=== PATIENT | female | born 1970 | race Caucasian/White ===

== ENCOUNTER 2019-05-14 13:22 | Emergency (ER) | payer MEDICARE ==
--- NOTE | 2019-05-14 13:57 | ER Document Report ---
ED Medical Screen (RME) - General Chief Complaint: Breast Lump Stated Complaint: LEFT BREAST PAIN Time Seen by Provider: 05/14/19 13:50 Information source: Patient Notes: Patient presents with swelling to the left nipple for the past 5 days. 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 Patient states that she has been seen at the urgent care for the past 2 days and each day has received a Rocephin injection. Patient denies any improvement of her symptoms. Patient denies any fever or history of diabetes. I have greeted and performed a rapid initial assessment of this patient. A comprehensive ED assessment and evaluation of the patient, analysis of test results and completion of the medical decision making process will be conducted by additional ED providers. - Related Data Allergies/Adverse Reactions: cephalexin [From Keflex] Allergy (Verified 05/14/19 13:48) doxycycline Allergy (Verified 05/14/19 13:48) Sulfa (Sulfonamide Antibiotics) Allergy (Verified 05/14/19 13:50) Physical Exam - Vital signs Vitals: Temp Pulse Resp BP Pulse Ox 98.0 F 85 16 137/94 H 100 05/14/19 13:31 05/14/19 13:31 05/14/19 13:31 05/14/19 13:31 05/14/19 13:31 - General General appearance: Appears well, Alert Notes: Tenderness, swelling, erythema involving the nipple of the left breast Course - Vital Signs Vital signs: Temp Pulse Resp BP Pulse Ox 98.0 F 85 16 137/94 H 100 05/14/19 13:31 05/14/19 13:31 05/14/19 13:31 05/14/19 13:31 05/14/19 13:31
--- NOTE | 2019-05-14 14:43 | RADIOLOGY REPORT (SQ) ---
EXAM DESCRIPTION: U/S CHEST COMPLETED DATE/TIME: 05/14/2019 2:34 pm REASON FOR STUDY: eval for abscess COMPARISON: None TECHNIQUE: Static and Realtime grayscale interrogation of focal area(s) of concern in the left breas t(s) acquired. Selected color doppler/spectral images saved to PACS. LIMITATIONS: None. FINDINGS: Masses:1.8 x 1.5 x 2.1 cm heterogeneous mass retroareolar with increased vascularity. Architecture:No alteration of normal morphology. No skin thickening. No edema. Other: None. IMPRESSION: Mass in the left breast BIRAD: 0 Incomplete: Need additional imaging evaluation and/or prior mammograms for comparison.. RECOMMENDATION: RECOMMENDED FOLLOW-UP: Patient needs a mammogram. COMMENT: The [employer] ([employer]) has developed recommendations for screening MRI of the breasts in certain patient populations, to be used in conjunction with mammography. Breast MRI s urveillance may be appropriate for women with more than 20% lifetime risk of developing breast cancer as determined by genetic testing, significant family history of the disease, or history of mantle r adiation for Hodgkins Disease. [employer]CR Practice Guidelines 2008. TECHNICAL DOCUMENTATION: FINDING NUMBER: (1) ASSESSMENT: (1) JOB ID: [id number] [employer]- All Rights Reserved Reading location - IP/workstation name: [email or web address]
[2019-05-14] MEDS ORDERED: KETOROLAC TROMETHAMINE 60 MG/2 ML SDV IM ONE (15:31)
--- NOTE | 2019-05-14 15:36 | ER Document Report ---
ED Breast Problem - General Chief Complaint: Breast Problem Stated Complaint: LEFT BREAST PAIN Time Seen by Provider: 05/14/19 13:50 Primary Care Provider: GORDY FLANAGAN MD [ACTIVE STAFF] - Follow up in 3-5 days Notes: 49-year-old female presents with left nipple swelling/pain for 5 days. Patient states she has a history of abscesses to the left breast however this seems different. Patient states she initially had some white/yellow discharge from her nipple but has not had any since the second day. Patient states some discharge from her nipple is normal for her. Patient states she went to the urgent care the last 2 days and was given a shot of Rocephin both times. Patient denies any fever. Patient denies any family history of breast cancer. - Related Data Allergies/Adverse Reactions: cephalexin [From Keflex] Allergy (Verified 05/14/19 13:48) doxycycline Allergy (Verified 05/14/19 13:48) Sulfa (Sulfonamide Antibiotics) Allergy (Verified 05/14/19 13:50) Past Medical History - General Information source: Patient - Social History Smoking Status: Current Every Day Smoker Family History: None Patient has suicidal ideation: No Patient has homicidal ideation: No Review of Systems - Review of Systems Notes: Constitutional: Negative for fever. HENT: Negative for sore throat. Eyes: Negative for visual changes. Cardiovascular: Negative for chest pain. Respiratory: Negative for shortness of breath. Gastrointestinal: Negative for abdominal pain, vomiting or diarrhea. Genitourinary: Negative for dysuria. Musculoskeletal: Negative for back pain. Skin: Positive for left nipple swelling/pain. Negative for rash. Neurological: Negative for headaches, weakness or numbness. 10 point ROS negative except as marked above and in HPI. Physical Exam - Vital signs Vitals: Temp Pulse Resp BP Pulse Ox 98.0 F 85 16 137/94 H 100 05/14/19 13:31 05/14/19 13:31 05/14/19 13:31 05/14/19 13:31 05/14/19 13:31 - Notes Notes: GENERAL: Well-appearing, well-nourished and in no acute distress. HEAD: Atraumatic, normocephalic. EYES: Extraocular movements intact, sclera anicteric, conjunctiva are normal. NECK: Normal range of motion, supple without lymphadenopathy or JVD. BREAST: Left nipple is noted to be moderately swollen and erythematous. Area is very tender to touch. No obvious abscess felt. No discharge/drainage. EXTREMITIES: Normal range of motion, no pitting or edema. No clubbing or cyanosis. NEUROLOGICAL: Cranial nerves II through XII grossly intact. Normal speech, normal gait. PSYCH: Normal mood, normal affect. SKIN: Warm, Dry, normal turgor, no rashes or lesions noted. Course - Re-evaluation Re-evalutation: 05/14/19 49-year-old female presents for left nipple swelling/pain for 5 days. History of abscesses however states this feels different. Patient had ultrasound ordered in triage which showed a mass retro-alveolar with increased vascularity. Patient is afebrile. A copy of this report was also given to patient. Discussed the results as well including possible differentials including cysts, benign mass, possible cancer. Educated patient on importance of getting mammogram outpatient and follow-up with a primary care doctor. An order for an outpatient mammogram was given and close follow-up with a primary care doctor was also given. Again encouraged patient to make appointment for outpatient mammogram and for primary care doctor. Strict return precautions given. All questions/concerns addressed prior to discharge. Patient voices understanding and agrees with plan of care. - Vital Signs Vital signs: Temp Pulse Resp BP Pulse Ox 98.0 F 85 16 137/94 H 100 05/14/19 13:31 05/14/19 13:31 05/14/19 13:31 05/14/19 13:31 05/14/19 13:31 Discharge - Discharge Clinical Impression: Left breast mass Condition: Stable Disposition: HOME, SELF-CARE Instructions: Growth or Mass, Pending Workup ([facility]) Additional Instructions: The ultrasound of your left breast showed a mass behind your nipple. You were given a copy of your report. It is recommended that you get a mammogram done outpatient. An order is included in your discharge instructions. Please call to make an appointment to have this done. Please follow-up with primary care doctor listed in 3 to 5 days. Please take medications as prescribed and do not drink or drive while taking Percocet as it may make you sleepy. Return immediately to ER if you start having any worsening symptoms, including fever, increased swelling, nipple discharge/drainage, increased pain, chest pain, shortness of breath, nausea/vomiting, or any other symptoms that are concerning to you. Prescriptions: Ibuprofen [Motrin 800 mg Tablet] 800 mg PO Q8H PRN #30 tab PRN Reason: Oxycodone HCl/Acetaminophen [Percocet 5-325 mg Tablet] 1 tab PO ASDIR PRN #15 tab PRN Reason: Forms: Follow-Up Radiology Testing Referrals: GORDY FLANAGAN MD [ACTIVE STAFF] - Follow up in 3-5 days
[2019-05-14 17:13] VITALS: BP 128/75
== END 2019-05-14 17:00 | disposition home or self-care (01) ==
LOC: ER 13:22
DX: N63.0 Unspecified lump in unspecified breast (principal); N64.4 Mastodynia; F17.200 Nicotine dependence, unspecified, uncomplicated; Z88.2 Allergy status to sulfonamides
CPT/HCPCS: 99283; 96372; 76604; J1885

== ENCOUNTER 2019-05-16 11:19 | Inpatient (IN) | payer MEDICARE ==
[~2019-05-16 11:19] MED LIST: SUCCINYLCHOLINE CHLORIDE INJ 200 MG/10 ML VIAL ONE
--- NOTE | 2019-05-16 11:35 | ER Document Report ---
ED Medical Screen (RME) - General Chief Complaint: Breast Lump Stated Complaint: LUMP ON BREAST Time Seen by Provider: 05/16/19 11:26 Primary Care Provider: BEVERLY AGUILAR PA-C [Primary Care Provider] - Follow up as needed Mode of Arrival: Ambulatory Information source: Patient Notes: This 49-year-old female presents emergency department with recently diagnosed left breast mass this past Wednesday. She reports she is returning today because erythema swelling and pain has increased. Patient is scheduled for a mammogram Wednesday follow-up provider care next Wednesday. Complains of some nausea with vomiting denies fever. Reports history of abscess to her breast area. Review of ultrasound form 05/14/19 shows left breast mass. I have greeted and performed a rapid initial assessment of this patient. A comprehensive ED assessment and evaluation of the patient, analysis of test results and completion of the medical decision making process will be conducted by additional ED providers. - Related Data Allergies/Adverse Reactions: cephalexin [From Keflex] Allergy (Verified 05/14/19 13:48) doxycycline Allergy (Verified 05/14/19 13:48) Sulfa (Sulfonamide Antibiotics) Allergy (Verified 05/14/19 13:50) Past Medical History - Past Medical History Cardiac Medical History: Reports: Hx Hypertension Renal/ Medical History: Reports: Hx Kidney Stones Past Surgical History: Reports: Hx Abdominal Surgery - gastric bypass, Hx Section - x2, Hx Cholecystectomy, Hx Tonsillectomy, Hx Tubal Ligation Physical Exam - Vital signs Vitals: Temp Pulse Resp BP Pulse Ox 97.5 F 89 18 142/99 H 99 05/16/19 11:25 05/16/19 11:25 05/16/19 11:25 05/16/19 11:25 05/16/19 11:25 Course - Vital Signs Vital signs: Temp Pulse Resp BP Pulse Ox 97.5 F 89 18 142/99 H 99 05/16/19 11:25 05/16/19 11:25 05/16/19 11:25 05/16/19 11:25 05/16/19 11:25 Doctor's Discharge - Discharge Referrals: BEVERLY AGUILAR PA-C [Primary Care Provider] - Follow up as needed
[2019-05-16 12:54] LABS: ABSOLUTE EOSINOPHILS # (AUTO) 0.1 10^3/uL (0.0-0.6); ABSOLUTE LYMPHOCYTES (AUTO) 1.7 10^3/uL (0.5-4.7); ABSOLUTE MONOCYTES (AUTO) 0.4 10^3/uL (0.1-1.4); ABSOLUTE NEUT (AUTO) 8.2 10^3/uL (1.7-8.2); BASOPHILS % (AUTO) 0.3 % (0-2); EOSINOPHILS % (AUTO) 1.2 % (0-6); HEMATOCRIT 38.6 % (36.0-47.0); HEMOGLOBIN 13.2 g/dL (12.0-15.5); MEAN CORPUSCULAR HEMOGLOBIN 28.8 pg (27.0-33.4); MEAN CORPUSCULAR HGB CONC 34.1 g/dL (32.0-36.0); MEAN CORPUSCULAR VOLUME 85 fl (80-97); MONOCYTES % (AUTO) 4.2 % (3-13); PLATELET COUNT 243 10^3/uL (150-450); RED BLOOD COUNT 4.57 10^6/uL (3.72-5.28); RED CELL DISTRIBUTION WIDTH 14.8 % (11.5-14.0); SEGMENTED NEUTROPHILS % (AUTO) 78.3 % (42-78); TOTAL CELLS COUNTED % (AUTO) 100 %; WHITE BLOOD COUNT 10.5 10^3/uL (4.0-10.5)
[2019-05-16 12:56] LABS: APPEARANCE,URINE CLEAR; BILIRUBIN,URINE NEGATIVE (NEGATIVE); COLOR,URINE YELLOW; GLUCOSE, URINE NEGATIVE (NEGATIVE); KETONES,URINE NEGATIVE (NEGATIVE); LEUKOCYTE ESTERASE,URINE NEGATIVE (NEGATIVE); NITRITE,URINE NEGATIVE (NEGATIVE); PROTEIN,URINE NEGATIVE (NEGATIVE); URINE SPECIFIC GRAVITY 1.008; UROBILINOGEN,URINE NEGATIVE mg/dL (<2.0)
[2019-05-16] MEDS ORDERED: LIDOCAINE 4% TRANSPARENT DRESSING 5 GM KIT TP ONE (13:00)
[2019-05-16] MEDS ORDERED: LIDOCAINE 2% INJ (20 MG/ML) 20 ML MDV INJ ONE (13:00)
[2019-05-16 13:08] LABS: ALBUMIN 3.6 g/dL (3.5-5.0); ALKALINE PHOSPHATASE 172 U/L (38-126); ANION GAP 8 (5-19); ASPARTATE AMINO TRANSFERASE 183 U/L (14-36); BILIRUBIN,DIRECT 0.1 mg/dL (0.0-0.4); BILIRUBIN,TOTAL 0.5 mg/dL (0.2-1.3); BLOOD UREA NITROGEN 14 mg/dL (7-20); CALCIUM 9.2 mg/dL (8.4-10.2); CARBON DIOXIDE 23 mmol/L (22-30); CHLORIDE 109 mmol/L (98-107); GLUCOSE 116 mg/dL (75-110); POTASSIUM 3.7 mmol/L (3.6-5.0); TOTAL PROTEIN 6.4 g/dL (6.3-8.2)
[2019-05-16] MEDS ORDERED: ONDANSETRON HCL INJ/PF 4 MG/2 ML SDV IV ONE (13:16)
[2019-05-16] MEDS ORDERED: KETOROLAC TROMETHAMINE INJ/PF 30 MG/1 ML SDV IV ONE ×2 (13:16→21:45)
[2019-05-16] MEDS ORDERED: ONDANSETRON 4 MG TAB.RAPDIS PO ONE (13:36)
[2019-05-16] MEDS ORDERED: KETOROLAC TROMETHAMINE 60 MG/2 ML SDV IM ONE (13:36)
[2019-05-16] MEDS ORDERED: HYDROMORPHONE HCL INJ/PF 2 MG/ML AMPULE IV ONE (14:13)
--- NOTE | 2019-05-16 14:26 | ER Document Report ---
Entered by ANASTASIA OWENS SCRIBE 05/16/19 [id number] Acting as scribe for:MARY SMITH IV, MD ED Breast Problem - General Chief Complaint: Breast Problem Stated Complaint: LUMP ON BREAST Time Seen by Provider: 05/16/19 11:26 Primary Care Provider: BEVERLY AGUILAR PA-C [ALLIED HEALTH PROFESSIONAL] - Follow up as needed Mode of Arrival: Ambulatory Information source: Patient, [facility] Records Notes: This 49 year old female patient presents to the ED today with complaints of increasing redness, swelling, and pain on her left breast. Patient was recently diagnosed with a left breast mass x2 days ago. Patient reports that she first experienced the pain x1 week ago and it has become more severe since onset. Patient states that she tried to relieve the pain with alternating warm and cold compresses because she has had similar symptoms in the past, but the pain persisted. Patient describes the pain as "shooting and burning". Patient reports nausea, vomiting, and history of abscess to her breast area, but denies fevers. TRAVEL OUTSIDE OF THE [place] IN LAST 30 DAYS: No - HPI Similar symptoms previously: Yes - PT STATES SHE HAS HAD THES ABSCESSES IN THE PAST AND HAS BEEN ADMITTED Notes: Patient states that she has been admitted to hospitals in the past including hospital in [place] as well as [facility] and [facility] for surgical incision and drainage of prior abscesses under anesthesia. Patient states she usually also receives PICC line, Benadryl and IV vancomycin. - Related Data Allergies/Adverse Reactions: cephalexin [From Keflex] Allergy (Verified 05/16/19 11:35) doxycycline Allergy (Verified 05/16/19 11:35) Penicillins Allergy (Verified 05/16/19 11:35) Sulfa (Sulfonamide Antibiotics) Allergy (Verified 05/16/19 11:35) Home Medications: synthroid, topomax Past Medical History - General Information source: Patient - Social History Smoking Status: Unknown if Ever Smoked Cigarette use (# per day): No Chew tobacco use (# tins/day): No Smoking Education Provided: No Frequency of alcohol use: None Drug Abuse: None Family History: None Patient has suicidal ideation: No Patient has homicidal ideation: No - Past Medical History Cardiac Medical History: Reports: Hx Hypertension Renal/ Medical History: Reports: Hx Kidney Stones Past Surgical History: Reports: Hx Abdominal Surgery - gastric bypass, Hx Section - x2, Hx Cholecystectomy, Hx Gynecologic Surgery - ablation, Hx Tonsillectomy, Hx Tubal Ligation Review of Systems - Review of Systems Constitutional: No symptoms reported EENT: No symptoms reported Cardiovascular: No symptoms reported Respiratory: No symptoms reported Gastrointestinal: See HPI, Nausea, Vomiting Genitourinary: No symptoms reported Female Genitourinary: No symptoms reported Musculoskeletal: See HPI, Other - redness, swelling, and pain of left breast Skin: No symptoms reported Hematologic/Lymphatic: No symptoms reported Neurological/Psychological: No symptoms reported -: Yes All other systems reviewed and negative Physical Exam - Vital signs Vitals: Temp Pulse Resp BP Pulse Ox 97.5 F 89 18 142/99 H 99 05/16/19 11:25 05/16/19 11:25 05/16/19 11:25 05/16/19 11:25 05/16/19 11:25 - General General appearance: Alert In distress: None - HEENT Head: Normocephalic, Atraumatic Eyes: Normal Pupils: PERRL - Respiratory Respiratory status: No respiratory distress Chest status: Nontender Breath sounds: Normal Chest palpation: Normal - Cardiovascular Rhythm: Regular Heart sounds: Normal auscultation Murmur: No - Abdominal Inspection: Normal Distension: No distension Bowel sounds: Normal Tenderness: Nontender Organomegaly: No organomegaly - Back Back: Normal, Nontender - Extremities General upper extremity: Normal inspection General lower extremity: Normal inspection - Neurological Neuro grossly intact: Yes - Psychological Associated symptoms: Normal affect, Normal mood - Skin Skin Temperature: Warm Skin Moisture: Dry Skin irregularity: Erythema - 8 cm in circumference, diffusely erythematous medial to areola on left side of left breast, other - Significant swelling and fluctuance of left nipple. Left nipple is inverted. No drainage seen. Location of irregularity: Chest - left breast Character of irregularity: Macular Irregularity with: Swelling, Tenderness - left breast is tender with palpation Course - Vital Signs Vital signs: Temp Pulse Resp BP Pulse Ox 97.5 F 89 18 142/99 H 99 05/16/19 11:28 05/16/19 11:28 05/16/19 11:28 05/16/19 11:28 05/16/19 11:28 - Laboratory Result Diagrams: 05/16/19 12:20 05/16/19 12:20 Laboratory results interpreted by me: 05/16/19 05/16/19 12:20 12:20 RDW 14.8 H Seg Neutrophils % 78.3 H Chloride 109 H Glucose 116 H AST 183 H Alkaline Phosphatase 172 H - Consults DR. CIELO MULLEN Time consulted: 14:23 Reason for consultation: 05/16/19 14:23 POSSIBLE BREAST ABSCESS Consulted provider: will come to ER Discharge - Discharge Clinical Impression: Left breast abscess Condition: Good Disposition: ADMITTED INPATIENT Admitting Provider: Surgicalist Matt MULLEN Unit Admitted: Surgical Floor Referrals: BEVERLY AGUILAR PA-C [ALLIED HEALTH PROFESSIONAL] - Follow up as needed I personally performed the services described in the documentation, reviewed and edited the documentation which was dictated to the scribe in my presence, and it accurately records my words and actions.
[2019-05-16] MEDS ORDERED: FENTANYL CITRATE INJ/PF 100 MCG/2 ML AMPUL ONE (15:18)
[2019-05-16] MEDS ORDERED: MIDAZOLAM 2 MG/2 ML INJ ONE (15:18)
[2019-05-16] MEDS ORDERED: PROPOFOL INJ 200 MG/20 ML VIAL IV ONE (15:19)
[2019-05-16] MEDS ORDERED: LIDOCAINE 0.5% INJ-PF (5 MG/ML) 50 ML SDV ONE (15:20)
[2019-05-16] MEDS ORDERED: DIPHENHYDRAMINE HCL 50 MG/ML VIAL IV ONE (15:23)
[2019-05-16] MEDS ORDERED: NORMAL SALINE 1000 ML 1,000 ML IV ONE (15:23)
[2019-05-16] MEDS ORDERED: NICOTINE 21 MG/24 HR PATCH.TD24 TD ONE (15:24)
[2019-05-16] MEDS ORDERED: VANCOMYCIN HCL INJ 1000 MG VIAL IV ONE (15:24)
[2019-05-16] MEDS ORDERED: ONDANSETRON HCL INJ/PF 4 MG/2 ML SDV ONE (15:37)
[2019-05-16] MEDS ORDERED: KETOROLAC TROMETHAMINE 60 MG/2 ML SDV ONE (15:37)
[2019-05-16] MEDS ORDERED: DEXAMETHASONE SOD PHOSPHATE INJ 4 MG/1 ML VIAL ONE (15:37)
[2019-05-16] MEDS ORDERED: SILVER SULFADIAZINE 1% CREAM 25 GM ONE (15:37)
[2019-05-16] MEDS ORDERED: ONDANSETRON HCL INJ/PF 4 MG/2 ML SDV IV PRN (16:30)
[2019-05-16] MEDS ORDERED: FENTANYL CITRATE INJ/PF 100 MCG/2 ML AMPUL IV PRN ×3 (16:30)
[2019-05-16] MEDS ORDERED: MORPHINE SULFATE 10 MG/ML INJ IV PRN (16:30)
[2019-05-16] MEDS ORDERED: PROMETHAZINE HCL INJ 25 MG/1 ML VIAL IV PRN ×2 (16:30)
[2019-05-16] MEDS ORDERED: DIPHENHYDRAMINE HCL 50 MG/ML VIAL IV PRN (16:30)
[2019-05-16] MEDS ORDERED: MEPERIDINE HCL/PF INJ 25 MG/1 ML DISP.SYRIN IV PRN (16:30)
[2019-05-16] MEDS ORDERED: OXYCODONE-ACETAMINOPHEN 5-325 MG TABLET PO PRN ×2 (16:30)
--- NOTE | 2019-05-16 17:27 | PDOC H&P ---
History of Present Illness Admission Date/PCP: 05/16/19 15:21 Patient complains of: Left breast nipple areola complex redness, swelling and drainage History of Present Illness: DAHLIA THOMPSON is a 49 year old female The patient is a 49-year-old female with a history of multiple, recurrent, left breast and nipple areolar infection to the past years which required at least 6 surgeries to drain the abscesses. The patient returns with a complaint of left breast nipple areole area redness, swelling, and pain with drainage. Past Medical History Cardiac Medical History: Reports: Hypertension Past Surgical History Past Surgical History: Reports: Section - x2, Cholecystectomy, Tonsillectomy, Tubal Ligation Social History Smoking Status: Unknown if Ever Smoked Electronic Cigarette use?: No - Advance Directive Resuscitation Status: Full Code Family History Family History: None Parental Family History Reviewed: Yes - Diabetes Children Family History Reviewed: No Sibling(s) Family History Reviewed.: No Medication/Allergy Home Medications: Ibuprofen [Motrin 800 mg Tablet] 800 mg PO Q8H PRN #30 tab 05/14/19 Oxycodone HCl/Acetaminophen [Percocet 5-325 mg Tablet] 1 tab PO ASDIR PRN #15 tab 05/14/19 Topiramate [Topamax 25 mg Tablet] 25 mg PO TID 05/14/19 Levothyroxine Sodium 150 mcg PO DAILY 05/16/19 Allergies/Adverse Reactions: cephalexin [From Keflex] Allergy (Verified 05/16/19 11:35) doxycycline Allergy (Verified 05/16/19 11:35) Penicillins Allergy (Verified 05/16/19 11:35) Sulfa (Sulfonamide Antibiotics) Allergy (Verified 05/16/19 11:35) Physical Exam Vital Signs: Temp Pulse Resp BP Pulse Ox 97.9 F 78 20 143/78 H 96 05/16/19 15:52 05/16/19 15:52 05/16/19 15:52 05/16/19 15:52 05/16/19 15:52 Intake & Output 05/15/19 05/16/19 05/17/19 06:59 06:59 06:59 Weight 107 kg General appearance: PRESENT: no acute distress, obese Head exam: PRESENT: atraumatic Eye exam: PRESENT: EOMI Mouth exam: PRESENT: neck supple Teeth exam: PRESENT: poor dentation Neck exam: PRESENT: full ROM Respiratory exam: PRESENT: clear to auscultation sher Cardiovascular exam: PRESENT: RRR GI/Abdominal exam: PRESENT: normal bowel sounds, soft Rectal exam: PRESENT: deferred Extremities exam: PRESENT: full ROM Musculoskeletal exam: PRESENT: full ROM Psychiatric exam: PRESENT: appropriate affect Skin exam: PRESENT: other - Right breast = no masses, or skin lesions appreciated, normal nipple areolar complex Left breast = presence of redness, edema, swelling, and drainage of the left nipple areolar complex extending deep in the breast tissue with induration Results Laboratory Results: 05/16/19 12:20 05/16/19 12:20 05/16/19 05/16/19 05/16/19 12:20 12:20 12:35 WBC 10.5 RBC 4.57 Hgb 13.2 Hct 38.6 MCV 85 MCH 28.8 MCHC 34.1 RDW 14.8 H Plt Count 243 Seg Neutrophils % 78.3 H Sodium 139.7 Potassium 3.7 Chloride 109 H Carbon Dioxide 23 Anion Gap 8 BUN 14 Creatinine 0.86 Est GFR ( Amer) > 60 Glucose 116 H Calcium 9.2 Total Bilirubin 0.5 AST 183 H Alkaline Phosphatase 172 H Total Protein 6.4 Albumin 3.6 Urine Color YELLOW Urine Appearance CLEAR Urine pH 5.0 Ur Specific [place] 1.008 Urine Protein NEGATIVE Urine Glucose (UA) NEGATIVE Urine Ketones NEGATIVE Urine Blood NEGATIVE Urine Nitrite NEGATIVE Ur Leukocyte Esterase NEGATIVE Urine WBC (Auto) 4 Urine RBC (Auto) 1 Assessment & Plan - Diagnosis (1) LEFT NIPPLES AREOLAR COMPLEX ABScess Is this a current diagnosis for this admission?: Yes - Plan Summary Plan Summary: Assessment: History of multiple left breast and nipple areolar complex infection, requiring multiple surgical interventions History of MRSA infection Left breast nipple areolar complex edema, edema, drainage, and pain for the past 7 days History of hyperthyroidism and migraines Family history of diabetes Personal history of tobacco smoking Plan: Urgent left breast abscess incision and drainage, possible debridement, possible lumpectomy of left nipple areolar complex Procedure, risks, benefits, complications, scarring of the left breast, disfiguration left breast, and abnormality of the left breast been discussed with the patient fully, her questions were answered to her satisfaction, and she decided to proceed. Admission following surgery IV vancomycin preceded by the administration of Benadryl due to the red man syndrome presented by the patient Wound care following surgery
--- NOTE | 2019-05-16 17:46 | Operative Report ---
Operative Report DATE OF SURGERY: 05/16/19 PREOPERATIVE DIAGNOSIS: Left breast nipple areolar complex abscess, recurrent POSTOPERATIVE DIAGNOSIS: Same OPERATION: Left breast nipple areolar complex lumpectomy SURGEON: CIELO MULLEN ANESTHESIA: GA TISSUE REMOVED OR ALTERED: Left breast nipple areolar complex lumpectomy COMPLICATIONS: None ESTIMATED BLOOD LOSS: Less than 10 mL INTRAOPERATIVE FINDINGS: Left breast nipple areolar complex deformity with edema, erythema, induration, extending to the deep breast tissue PROCEDURE: Procedure was done in the operating room, the patient was placed in supine position, general esthesia induced Benadryl intubation, the left breast was prepped and draped in usual fashion. The area of the nipple complex was marked with a surgical marker and the Bovie was used to divide the skin at the level of the renal breast skin margin. The subcutaneous fat was then circumferentially divided with Bovie deep until indurated breast tissue was identified; when the breast tissue appeared to be soft the dissection was interrupted this patient was appropriate marked with sutures removed and sent to pathology. They surgical field was irrigated with normal, saline local bleeders were cauterized with Bovie, the cavity was packed with half-inch form gauze soaked in a 50% Betadine solution. The skin edge subcutaneous tissue was loosely approximated with a few interrupted deep inverted 3-0 Vicryl sutures, and the skin edges were approximated loosely with 3-0 nylon interrupted vertical mattress sutures which were left untied. Sterile dressings and tape were applied, the patient tolerated procedure well, was extubated, and transferred to recovery room in satisfactory conditions.
[2019-05-16] MEDS ORDERED: VANCOMYCIN HCL 0 MG in DEXTROSE 5%-WATER 250 ML IV NR (18:00)
[2019-05-16] MEDS ORDERED: PROCHLORPERAZINE EDISYLATE INJ 10 MG/2 ML VIAL IM PRN (18:05)
[2019-05-16] MEDS: ACETAMINOPHEN 1,000 MG/100 ML RTUPB IV SCH ×2 (19:48→23:15)
[2019-05-16] MEDS: POTASSI CL 20 MEQ/D5NS 1L 20 MEQ/1,000 ML RTUINJ IV PRN (20:39)
[2019-05-16] MEDS: LEVOFLOXACIN 500 MG/D5W RTU 500 MG/100 ML RTUPB IV SCH (21:00)
[2019-05-16] MEDS: DOCUSATE SODIUM 100 MG CAPSULE PO SCH (21:12)
[2019-05-16] MEDS: FAMOTIDINE 20 MG TABLET PO SCH (21:13)
[2019-05-17] MEDS: MORPHINE SULFATE 10 MG/ML INJ IV PRN ×2 (03:03→07:32)
[2019-05-17 05:21] LABS: ABSOLUTE LYMPHOCYTES (AUTO) 0.9 10^3/uL (0.5-4.7); ABSOLUTE MONOCYTES (AUTO) 0.2 10^3/uL (0.1-1.4); ABSOLUTE NEUT (AUTO) 9.2 10^3/uL (1.7-8.2); BASOPHILS % (AUTO) 0.5 % (0-2); HEMATOCRIT 35.8 % (36.0-47.0); HEMOGLOBIN 12.2 g/dL (12.0-15.5); MEAN CORPUSCULAR HEMOGLOBIN 28.9 pg (27.0-33.4); MEAN CORPUSCULAR VOLUME 85 fl (80-97); PLATELET COUNT 245 10^3/uL (150-450); RED BLOOD COUNT 4.21 10^6/uL (3.72-5.28); RED CELL DISTRIBUTION WIDTH 14.7 % (11.5-14.0); SEGMENTED NEUTROPHILS % (AUTO) 88.5 % (42-78); TOTAL CELLS COUNTED % (AUTO) 100 %; WHITE BLOOD COUNT 10.4 10^3/uL (4.0-10.5)
[2019-05-17] MEDS: KETOROLAC TROMETHAMINE INJ/PF 30 MG/1 ML SDV IV SCH ×4 (05:24→23:00)
[2019-05-17] MEDS: DIPHENHYDRAMINE HCL 50 MG/ML VIAL IV SCH ×2 (05:25→17:53)
[2019-05-17] MEDS: ACETAMINOPHEN 1,000 MG/100 ML RTUPB IV SCH (05:25)
[2019-05-17 05:27] LABS: ANION GAP 9 (5-19); BLOOD UREA NITROGEN 14 mg/dL (7-20); CALCIUM 8.9 mg/dL (8.4-10.2); CARBON DIOXIDE 20 mmol/L (22-30); CHLORIDE 111 mmol/L (98-107); GLUCOSE 138 mg/dL (75-110); POTASSIUM 4.4 mmol/L (3.6-5.0)
[2019-05-17] MEDS: VANCOMYCIN HCL 1,500 MG in DEXTROSE 5%-WATER 250 ML IV SCH ×2 (06:11→18:59)
[2019-05-17] MEDS: POTASSI CL 20 MEQ/D5NS 1L 20 MEQ/1,000 ML RTUINJ IV PRN (06:16)
[2019-05-17] MEDS: DOCUSATE SODIUM 100 MG CAPSULE PO SCH ×2 (10:29→17:52)
[2019-05-17] MEDS: FAMOTIDINE 20 MG TABLET PO SCH ×2 (10:29→22:42)
[2019-05-17] MEDS: ENOXAPARIN SODIUM INJ 40 MG/0.4 ML DISP.SYRIN SUBCUT SCH (10:29)
[2019-05-17] MEDS ORDERED: MORPHINE SULFATE 10 MG/ML INJ ONE (10:39)
[2019-05-17] MEDS ORDERED: MORPHINE SULFATE 10 MG/ML INJ IV PRN (10:58)
--- NOTE | 2019-05-17 11:48 | PDOC PROGRESS REPORT ---
Subjective Progress Note for:: 05/17/19 Subjective:: Patient comfortable, she is requesting Nicorette patches Reason For Visit: LEFT BREAST AND NIPPLE AREOLAR COMPLEX Physical Exam Vital Signs: Temp Pulse Resp BP Pulse Ox 97.4 F 77 20 104/54 L 98 05/17/19 08:06 05/17/19 08:06 05/17/19 08:06 05/17/19 08:06 05/17/19 08:06 Intake & Output 05/16/19 05/17/19 05/18/19 06:59 06:59 06:59 Intake Total 5400 Output Total 1525 Balance 3875 Weight 109.2 kg General appearance: PRESENT: no acute distress Respiratory exam: PRESENT: other - Left breast = surgical wound clean, dry, and intact, packing present, skin sutures untied present, no erythema, edema, drainage, or odor Results Laboratory Results: 05/17/19 04:14 05/17/19 04:14 05/16/19 05/16/19 05/16/19 12:20 12:20 12:35 WBC 10.5 RBC 4.57 Hgb 13.2 Hct 38.6 MCV 85 MCH 28.8 MCHC 34.1 RDW 14.8 H Plt Count 243 Seg Neutrophils % 78.3 H Sodium 139.7 Potassium 3.7 Chloride 109 H Carbon Dioxide 23 Anion Gap 8 BUN 14 Creatinine 0.86 Est GFR ( Amer) > 60 Glucose 116 H Calcium 9.2 Total Bilirubin 0.5 AST 183 H Alkaline Phosphatase 172 H Total Protein 6.4 Albumin 3.6 Urine Color YELLOW Urine Appearance CLEAR Urine pH 5.0 Ur Specific [place] 1.008 Urine Protein NEGATIVE Urine Glucose (UA) NEGATIVE Urine Ketones NEGATIVE Urine Blood NEGATIVE Urine Nitrite NEGATIVE Ur Leukocyte Esterase NEGATIVE Urine WBC (Auto) 4 Urine RBC (Auto) 1 05/17/19 05/17/19 04:14 04:14 WBC 10.4 RBC 4.21 Hgb 12.2 Hct 35.8 L MCV 85 MCH 28.9 MCHC 34.0 RDW 14.7 H Plt Count 245 Seg Neutrophils % 88.5 H Sodium 140.3 Potassium 4.4 Chloride 111 H Carbon Dioxide 20 L Anion Gap 9 BUN 14 Creatinine 0.76 Est GFR ( Amer) > 60 Glucose 138 H Calcium 8.9 Total Bilirubin AST Alkaline Phosphatase Total Protein Albumin Urine Color Urine Appearance Urine pH Ur Specific [place] Urine Protein Urine Glucose (UA) Urine Ketones Urine Blood Urine Nitrite Ur Leukocyte Esterase Urine WBC (Auto) Urine RBC (Auto) Assessment & Plan - Diagnosis (1) LEFT NIPPLES AREOLAR COMPLEX ABScess Is this a current diagnosis for this admission?: Yes - Time Time Spent with patient: 25-34 minutes - Plan Summary Plan Summary: Assessment: Postoperative day #1 following left breast nipple areolar complex lumpectomy for recurrent breast abscess Vital signs stable, patient afebrile Blood work within normal limits, white blood cell count normal Patient comfortable Physical exam shows a well-healing surgical wound Plan: Hep-Lock IV fluids Continue IV antibiotics Resume home medications Incentive spirometer Nicotine patch Daily wound dressing changes with dry sponges Possible discharge in 1 to 2 days
[2019-05-17] MEDS ORDERED: HYDROCODONE/ACETAMINOPHEN 5-325 MG TABLET PO PRN (11:49)
[2019-05-17] MEDS: LEVOTHYROXINE SODIUM 0.15 MG TABLET PO SCH (12:45)
[2019-05-17] MEDS: TOPIRAMATE 25 MG TABLET PO SCH ×2 (14:30→22:41)
[2019-05-17] MEDS ORDERED: NICOTINE 21 MG/24 HR PATCH.TD24 TD ONE (15:00)
[2019-05-17] MEDS ORDERED: HYDROCODONE/ACETAMINOPHEN 5-325 MG TABLET ONE (15:32)
[2019-05-17] MEDS: HYDROCODONE/ACETAMINOPHEN 5-325 MG TABLET PO PRN ×2 (19:50→23:42)
[2019-05-17] MEDS: LEVOFLOXACIN 500 MG/D5W RTU 500 MG/100 ML RTUPB IV SCH (22:41)
[2019-05-18] MEDS: MORPHINE SULFATE 10 MG/ML INJ IV PRN ×3 (01:56→09:31)
[2019-05-18] MEDS: TOPIRAMATE 25 MG TABLET PO SCH ×3 (05:54→23:52)
[2019-05-18] MEDS: VANCOMYCIN HCL 1,500 MG in DEXTROSE 5%-WATER 250 ML IV SCH ×2 (05:55→18:21)
[2019-05-18] MEDS: KETOROLAC TROMETHAMINE INJ/PF 30 MG/1 ML SDV IV SCH ×4 (05:55→23:51)
[2019-05-18] MEDS: DIPHENHYDRAMINE HCL 50 MG/ML VIAL IV SCH ×2 (05:55→17:41)
[2019-05-18] MEDS: LEVOTHYROXINE SODIUM 0.15 MG TABLET PO SCH (07:16)
[2019-05-18] MEDS: NICOTINE 21 MG/24 HR PATCH.TD24 TD SCH (09:22)
[2019-05-18] MEDS: FAMOTIDINE 20 MG TABLET PO SCH ×2 (09:22→23:51)
[2019-05-18] MEDS: DOCUSATE SODIUM 100 MG CAPSULE PO SCH ×2 (09:22→17:41)
[2019-05-18] MEDS: ENOXAPARIN SODIUM INJ 40 MG/0.4 ML DISP.SYRIN SUBCUT SCH (09:22)
--- NOTE | 2019-05-18 11:06 | PDOC PROGRESS REPORT ---
Subjective Progress Note for:: 05/18/19 Subjective:: No complaints; no fever. Reason For Visit: LEFT BREAST AND NIPPLE AREOLAR COMPLEX Physical Exam Vital Signs: Temp Pulse Resp BP Pulse Ox 97.9 F 63 12 113/76 100 05/18/19 07:37 05/18/19 07:37 05/18/19 07:37 05/18/19 07:37 05/18/19 07:37 Intake & Output 05/17/19 05/18/19 05/19/19 06:59 06:59 06:59 Intake Total 5400 2670 Output Total 1525 Balance 3875 2670 Weight 109.2 kg 109.5 kg General appearance: PRESENT: no acute distress Breast: PRESENT: Other - Left breast examined; no cellulitis foul smell or drainage. DPC sutures approximated at bedside, x4; tolerated well. Results Laboratory Results: 05/17/19 04:14 05/17/19 04:14 Assessment & Plan - Diagnosis (1) LEFT NIPPLES AREOLAR COMPLEX ABScess Is this a current diagnosis for this admission?: Yes Plan: Impression: Patient is postoperative day 2; lumpectomy for complex recurrent infection of the left breast, doing well, no complications. Wound reapproximated bedside today. Recommendations: 1. We will get patient into shower 2. We will switch her to p.o. analgesics 3. We will start Colace therapy 4. Anticipate discharge home later today or tomorrow. - Time Time Spent with patient: 15-24 minutes Medications reviewed and adjusted accordingly: Yes Anticipated discharge: Home
[2019-05-18] MEDS: OXYCODONE-ACETAMINOPHEN 5-325 MG TABLET PO PRN ×2 (12:54→19:41)
[2019-05-18 17:58] LABS: VANCOMYCIN,TROUGH 12.3 ug/mL (5.0-20.0)
[2019-05-18] MEDS ORDERED: DOCUSATE SODIUM 100 MG CAPSULE PO SCH (18:00)
[2019-05-18] MEDS: LEVOFLOXACIN 500 MG/D5W RTU 500 MG/100 ML RTUPB IV SCH (19:41)
[2019-05-19] MEDS: OXYCODONE-ACETAMINOPHEN 5-325 MG TABLET PO PRN ×2 (01:55→08:56)
[2019-05-19] MEDS: DIPHENHYDRAMINE HCL 50 MG/ML VIAL IV SCH (05:52)
[2019-05-19] MEDS: KETOROLAC TROMETHAMINE INJ/PF 30 MG/1 ML SDV IV SCH (05:52)
[2019-05-19] MEDS: VANCOMYCIN HCL 1,500 MG in DEXTROSE 5%-WATER 250 ML IV SCH (05:52)
[2019-05-19] MEDS: TOPIRAMATE 25 MG TABLET PO SCH (05:53)
[2019-05-19] MEDS: LEVOTHYROXINE SODIUM 0.15 MG TABLET PO SCH (08:56)
[2019-05-19 09:03] VITALS: BP 118/68
[2019-05-19] MEDS: NICOTINE 21 MG/24 HR PATCH.TD24 TD SCH (09:08)
[2019-05-19] MEDS: ENOXAPARIN SODIUM INJ 40 MG/0.4 ML DISP.SYRIN SUBCUT SCH (09:09)
[2019-05-19] MEDS: FAMOTIDINE 20 MG TABLET PO SCH (09:10)
--- NOTE | 2019-06-14 13:36 | Discharge Summary ---
Discharge Summary (SDC) - Discharge Final Diagnosis: Left breast recurrent abscess Date of Surgery: 05/16/19 Condition: Good Forms: Discharge POC-Surgical Service Treatment or Instructions: The patient is an obese, smoker a 41-year-old female with recurrent left breast nipple areolar complex abscess who came to the hospital on May 16, 2019 and she underwent complete excision of the left nipple areolar complex on the same day. The procedure was well-tolerated. She was kept on IV antibiotics vancomycin and Zosyn with no evidence of recurrent local infection. The wound edges were partially closed after surgery with interrupted deep sutures. The patient was kept on IV antibiotics and on the day of discharge the wound was clean, minimal serous drainage, no odor, no edema, wound edges approximated. Her wound pain was manageable, she was discharged home by 2018, regular diet, Levaquin 500 mg daily, clindamycin 300 mg p.o. 3 times a day, both for 7 days, Tylenol for pain, Nicorette patch, resume home medications, replace dry gauzes over left breast wound daily, patient can shower however do not point water directly on left breast wound, activity as tolerated, wear surgical bra during the daytime and at night as tolerated, follow-up with with surgery clinic in 2 weeks. Return to surgery clinic sooner if the wound becomes red, more painful, and with drainage which is either yellow or green and foul-smelling odor. Prescriptions: Ciprofloxacin HCl [Cipro 500 mg Tablet] 500 mg PO BID #10 tablet Clindamycin HCl [Cleocin 300 mg Capsule] 300 mg PO TID #15 capsule Nicotine [Nicoderm 21 mg/24 Hr Transderm Patch] 1 each TD DAILY #30 patch.td24 Referrals: [facility] [Provider Group] - 06/12/19 10:45 am (BRING PICTURE ID AND LIST OF MEDICATIONS) Respiratory Treatments at Home: Deep Breathing/Coughing Discharge Activity: Activity As Tolerated, Balance Activity w/Rest, No Lifting Over 10 Pounds, No Lifting/Push/Pulling, No tub bath, Other Home Care Assistance: None Needed Report the Following to Your Physician Immediately: Increase in Pain, Fever over 101 Degrees, Redness, Swelling, Drainage-[place], Drainage-Green, Drainage-Foul Smelling
--- NOTE | 2019-06-14 15:37 | PDOC DISCHARGE SUMMARY ---
General - Admit/Disc Date/PCP Admission Date/Primary Care Provider: 05/16/19 15:21 BEVERLY AGUILAR PA-C Discharge Date: 06/19/18 - Discharge Diagnosis Final Diagnosis: Left breast recurrent abscess of nipple areolar complex - Assessment Summary: The patient is an obese, smoker a 41-year-old female with recurrent left breast nipple areolar complex abscess who came to the hospital on May 16, 2019 and she underwent complete excision of the left nipple areolar complex on the same day. The procedure was well-tolerated. She was kept on IV antibiotics vancomycin and Zosyn with no evidence of recurrent local infection. The wound edges were partially closed after surgery with interrupted deep sutures. The patient was kept on IV antibiotics and on the day of discharge the wound was clean, minimal serous drainage, no odor, no edema, wound edges approximated. Her wound pain was manageable, she was discharged home by 2018, regular diet, Levaquin 500 mg daily, clindamycin 300 mg p.o. 3 times a day, both for 7 days, Tylenol for pain, Nicorette patch, resume home medications, replace dry gauzes over left breast wound daily, patient can shower however do not point water directly on left breast wound, activity as tolerated, wear surgical bra during the daytime and at night as tolerated, follow-up with with surgery clinic in 2 weeks. Return to surgery clinic sooner if the wound becomes red, more painful, and with drainage which is either yellow or green and foul-smelling odor. - Additional Information Resuscitation Status: Full Code Discharge Diet: As Tolerated Discharge Activity: Activity As Tolerated, Balance Activity w/Rest, No Lifting Over 10 Pounds, No Lifting/Push/Pulling, No tub bath, Other Referrals: [facility] [Provider Group] - 06/12/19 10:45 am (BRING PICTURE ID AND LIST OF MEDICATIONS) Prescriptions: Ciprofloxacin HCl [Cipro 500 mg Tablet] 500 mg PO BID #10 tablet Clindamycin HCl [Cleocin 300 mg Capsule] 300 mg PO TID #15 capsule Nicotine [Nicoderm 21 mg/24 Hr Transderm Patch] 1 each TD DAILY #30 patch.td24 Home Medications: Topiramate [Topamax 25 mg Tablet] 25 mg PO Q8 05/14/19 Levothyroxine Sodium 150 mcg PO Q6AM 05/16/19 Ciprofloxacin HCl [Cipro 500 mg Tablet] 500 mg PO BID #10 tablet 05/19/19 Clindamycin HCl [Cleocin 300 mg Capsule] 300 mg PO TID #15 capsule 05/19/19 Nicotine [Nicoderm 21 mg/24 Hr Transderm Patch] 1 each TD DAILY #30 patch.td24 1 07/20/18 History of Present Illiness History of Present Illness: DAHLIA THOMPSON is a 49 year old female The patient is a 49-year-old female with a history of multiple, recurrent, left breast and nipple areolar infection to the past years which required at least 6 surgeries to drain the abscesses. The patient returns with a complaint of left breast nipple areole area redness, swelling, and pain with drainage. Physical Exam Vital Signs: Temp Pulse Resp BP Pulse Ox 97.4 F 86 16 118/68 100 05/19/19 08:05 05/19/19 08:05 05/19/19 08:05 05/19/19 08:05 05/19/19 08:05 Results Laboratory Results: WBC 10.4 10^3/uL (4.0-10.5) 05/17/19 04:14 RBC 4.21 10^6/uL (3.72-5.28) 05/17/19 04:14 Hgb 12.2 g/dL (12.0-15.5) 05/17/19 04:14 Hct 35.8 % (36.0-47.0) L 05/17/19 04:14 MCV 85 fl (80-97) 05/17/19 04:14 MCH 28.9 pg (27.0-33.4) 05/17/19 04:14 MCHC 34.0 g/dL (32.0-36.0) 05/17/19 04:14 RDW 14.7 % (11.5-14.0) H 05/17/19 04:14 Plt Count 245 10^3/uL (150-450) 05/17/19 04:14 Lymph % (Auto) 9.0 % (13-45) L 05/17/19 04:14 [place] % (Auto) 2.0 % (3-13) L 05/17/19 04:14 Eos % (Auto) 0.0 % (0-6) 05/17/19 04:14 Baso % (Auto) 0.5 % (0-2) 05/17/19 04:14 Absolute Neuts (auto) 9.2 10^3/uL (1.7-8.2) H 05/17/19 04:14 Absolute Lymphs (auto) 0.9 10^3/uL (0.5-4.7) 05/17/19 04:14 Absolute Monos (auto) 0.2 10^3/uL (0.1-1.4) 05/17/19 04:14 Absolute Eos (auto) 0.0 10^3/uL (0.0-0.6) 05/17/19 04:14 Absolute Basos (auto) 0.0 10^3/uL (0.0-0.2) 05/17/19 04:14 Seg Neutrophils % 88.5 % (42-78) H 05/17/19 04:14 Sodium 140.3 mmol/L (137-145) 05/17/19 04:14 Potassium 4.4 mmol/L (3.6-5.0) 05/17/19 04:14 Chloride 111 mmol/L (98-107) H 05/17/19 04:14 Carbon Dioxide 20 mmol/L (22-30) L 05/17/19 04:14 Anion Gap 9 (5-19) 05/17/19 04:14 BUN 14 mg/dL (7-20) 05/17/19 04:14 Creatinine 0.76 mg/dL (0.52-1.25) 05/17/19 04:14 Est GFR ( Amer) > 60 (>60) 05/17/19 04:14 Est GFR (MDRD) Non-Af > 60 (>60) 05/17/19 04:14 Glucose 138 mg/dL (75-110) H 05/17/19 04:14 Calcium 8.9 mg/dL (8.4-10.2) 05/17/19 04:14 Total Bilirubin 0.5 mg/dL (0.2-1.3) 05/16/19 12:20 Direct Bilirubin 0.1 mg/dL (0.0-0.4) 05/16/19 12:20 Neonat Total Bilirubin Not Reportable 05/16/19 12:20 Neonat Direct Bilirubin Not Reportable 05/16/19 12:20 Neonat Indirect Bili Not Reportable 05/16/19 12:20 AST 183 U/L (14-36) H 05/16/19 12:20 ALT 328 U/L (<35) 05/16/19 12:20 Alkaline Phosphatase 172 U/L (38-126) H 05/16/19 12:20 Total Protein 6.4 g/dL (6.3-8.2) 05/16/19 12:20 Albumin 3.6 g/dL (3.5-5.0) 05/16/19 12:20 Urine Color YELLOW 05/16/19 12:35 Urine Appearance CLEAR 05/16/19 12:35 Urine pH 5.0 (5.0-9.0) 05/16/19 12:35 Ur Specific [place] 1.008 05/16/19 12:35 Urine Protein NEGATIVE mg/dL (NEGATIVE) 05/16/19 12:35 Urine Glucose (UA) NEGATIVE mg/dL (NEGATIVE) 05/16/19 12:35 Urine Ketones NEGATIVE mg/dL (NEGATIVE) 05/16/19 12:35 Urine Blood NEGATIVE (NEGATIVE) 05/16/19 12:35 Urine Nitrite NEGATIVE (NEGATIVE) 05/16/19 12:35 Urine Bilirubin NEGATIVE (NEGATIVE) 05/16/19 12:35 Urine Urobilinogen NEGATIVE mg/dL (<2.0) 05/16/19 12:35 Ur Leukocyte Esterase NEGATIVE (NEGATIVE) 05/16/19 12:35 Urine WBC (Auto) 4 /HPF 05/16/19 12:35 Urine RBC (Auto) 1 /HPF 05/16/19 12:35 Squamous Epi Cells Auto 1 /HPF 05/16/19 12:35 Urine Mucus (Auto) RARE /LPF 05/16/19 12:35 Urine Ascorbic Acid NEGATIVE (NEGATIVE) 05/16/19 12:35 Urine HCG, Qual NEGATIVE (NEGATIVE) 05/16/19 12:35 Time Trough Drawn 1728 05/18/19 17:28 Vancomycin Trough 12.3 ug/mL (5.0-20.0) 05/18/19 17:28
== END 2019-05-19 12:05 | disposition home or self-care (01) | DRG 585 ==
LOC: ER 11:19 → EH 15:21 → 4N 18:42 → UNDODISIN 05-19 09:45
PROVIDERS: ADMIT Surgery; ATTEND Surgery
PROC: 0HBU0ZZ Excision of Left Breast, Open Approach (ICD-10-PCS; principal; 2019-05-16 15:30)
DX: N61.1 Abscess of the breast and nipple (principal); E03.9 Hypothyroidism, unspecified; I10 Essential (primary) hypertension; E66.9 Obesity, unspecified; F17.200 Nicotine dependence, unspecified, uncomplicated; Z88.1 Allergy status to other antibiotic agents; Z88.0 Allergy status to penicillin; Z88.2 Allergy status to sulfonamides; Z88.8 Allergy status to other drugs, medicaments and biological substances; Z86.14 Personal history of Methicillin resistant Staphylococcus aureus infection; Z98.84 Bariatric surgery status
CPT/HCPCS: 36415; 400; 76604; 80048; 80053; 80202; 81001; 81025; 85025; 87040; 88307; 94799; 96372; 99283; 99284; J0131; J0330; J1100; J1200; J1650; J1885; J1956; J2250; J2270; J2405; J2704; J3010; J3370; J3480; J3490; J7030; J7060; L8000; S0119